=== PATIENT | female | born 1960 | race Caucasian/White ===

== ENCOUNTER 2020-08-24 13:04 | Outpatient (CLI) | payer OTHER, SELFPAY ==
--- NOTE | ~2020-08-24 | MR_ITS ---
EXAMINATION: MR thoracic spine wo con EXAM DATE: 08/24/2020 13:57 INDICATION: Back pain. TECHNIQUE: Multi-sequential, multiplanar MR images of the thoracic spine were obtained without contra st. Sagittal T1, T2, T2 fat saturation, axial T2 weighted images reviewed. There is no prior study for comparison. FINDINGS: Mild to moderate diffuse thoracic facet arthropathy, with mild ligamentum flavum hypertroph y at mid and lower thoracic levels. There are some small disc protrusions and bulges. No more than mi ld central canal stenosis at any given level. There is mild to moderate right-sided mid thoracic leve l neural foraminal stenosis. Paraspinal soft tissue is unremarkable. There is a 10 mm T1 and T2 low signal intensity region in the left side of the T4 vertebral body, ind eterminate. Differential diagnosis includes atypical hemangioma, metastatic disease, multiple myeloma . IMPRESSION: 1. Indeterminate T4 lesion, differential diagnosis including benign and malignant histologies. Consi robbi correlating with noncontrast thoracic CT or bone scan. 2. Mild to moderate thoracic spondylosis. 3. No acute findings. Reviewed, dictated and finalized at location A. IMPRESSION: 1. Indeterminate T4 lesion, differential diagnosis including benign and malign ant histologies. Consider correlating with noncontrast thoracic CT or bone scan . 2. Mild to moderate thoracic spondylosis. 3. No acute findings.
== END 2020-08-24 13:05 | disposition home or self-care (01) ==
PROVIDERS: PCP Internal Medicine; Visit Provider Nurse Practitioner Family
DX: M54.14 Radiculopathy, thoracic region (principal); M89.9 Disorder of bone, unspecified; M47.814 Spondylosis without myelopathy or radiculopathy, thoracic region
CPT/HCPCS: 72146

== ENCOUNTER 2020-09-15 09:27 | Outpatient (CLI) | payer OTHER, SELFPAY ==
--- NOTE | ~2020-09-15 | CT_ITS ---
EXAMINATION: CT thoracic spine wo con DATE: 09/15/2020 09:50 INDICATION: T4 mass. Back pain. TECHNIQUE: Computed tomography (CT) of the thoracic spine was performed without intravenous contrast. Automated exposure control and iterative reconstruction technique were employed. The dose-length pro duct was 608.38 mGy-cm. COMPARISON: Thoracic spine MRI 08/24/2020 FINDINGS: There is a small sliding hiatal hernia. Pneumobilia is noted, likely secondary to sphincter otomy. There is mild scarring at the lung apices. There is mild emphysema. There is 9 degrees levocur vature of upper thoracic spine. Vertebral body heights are normal. There is mildly decreased disc hei ght at multiple levels. There is moderately decreased disc height at T4-T5 and T5-T6 and severely dec reased disc height at T8-T9. There is endplate remodeling at many levels. There is multilevel facet j oint osteoarthritis, severe at many levels. On the right, there is mild neural foraminal stenosis at T4-T5 and T5-T6 and moderate neural foraminal stenosis at T8-T9 and T9-T10. On the left, there is mil d neural foraminal stenosis at T4-T5, T6-T7, and T8-T9. There is mild central canal stenosis at T10-T 11. IMPRESSION: 1. Moderate thoracic spondylosis. 2. No abnormality to correlate with the finding in T4 vertebral body on the prior MRI, likely benign. Reviewed, dictated and finalized at location A. IMPRESSION: 1. Moderate thoracic spondylosis. 2. No abnormality to correlate with the finding in T4 vertebral body on the teresa or MRI, likely benign.
== END 2020-09-15 09:28 | disposition home or self-care (01) ==
PROVIDERS: PCP Internal Medicine; Visit Provider Nurse Practitioner Family
DX: M47.814 Spondylosis without myelopathy or radiculopathy, thoracic region (principal)
CPT/HCPCS: 72128

== ENCOUNTER → 2020-10-14 11:30 | Outpatient (CLI) | payer OTHER, SELFPAY ==
--- NOTE | ~2020-10-14 | MM_ITS ---
EXAMINATION: MM screening [facility] BI w raul HISTORY: Screening mammogram TECHNIQUE: Craniocaudal and mediolateral oblique 3-D tomosynthesis images were obtained and synthetic 2-D images were generated. CAD analysis was submitted and interpreted. COMPARISON: 07/28/2012, 01/08/2012 BREAST PARENCHYMAL COMPOSITION: There are scattered areas of fibroglandular density. FINDINGS: Scattered benign-appearing calcifications are present. There is no evidence of suspicious m ass, calcification, or architectural distortion to suggest malignancy in either breast. There has bee n no suspicious interval change. IMPRESSION: 1. No mammographic evidence of malignancy. 2. Recommend routine screening mammography in one year. BI-RADS Category 2: Benign finding(s). Reviewed, dictated and finalized at location A.
== END ==
PROVIDERS: PCP Internal Medicine; Visit Provider Internal Medicine
DX: Z12.31 Encounter for screening mammogram for malignant neoplasm of breast (principal)
CPT/HCPCS: 77063; 77067

== ENCOUNTER 2021-10-01 03:44 | Emergency (ER) | payer OTHER, SELFPAY ==
--- NOTE | ~2021-10-01 | CT_ITS ---
EXAMINATION: CT abdomen pelvis wo con DATE: 10/01/2021 05:54 INDICATION: right upper abdominal pain. N/V, appetite changes TECHNIQUE: Computed tomography (CT) of the abdomen and pelvis was performed without intravenous contr ast. Automated exposure control and iterative reconstruction technique were employed. The dose-length product was 623.44 mGy-cm. COMPARISON: None FINDINGS: Lower thorax: Tree-in-bud opacities in the peripheral right middle lobe. Hiatal hernia Liver: Pneumobilia. Biliary/Gallbladder: Gallbladder is absent. No bile duct dilation. Pancreas: No mass or duct dilation. Spleen: Normal. Adrenals:No mass. Kidneys: No mass or stone. Mild right pelvic caliectasis without obstructing stone or mass, presumed chronic. GI tract: No small or large bowel dilation. Normal appendix. Mesentery/Peritoneum: No ascites, mass, or free air. Retroperitoneum: No mass. Pelvis: Pelvic organs are within normal limits. Soft Tissues: Soft tissues and body wall unremarkable. Bones: No acute osseous finding. IMPRESSION: Pneumobilia, most commonly seen following biliary instrumentation or secondary to an incompetent sphi ncter of Oddi, but may also occur with biliary-enteric fistula, and rarely from infection. Right midd le lobe tree-in-bud opacities as can be seen with atypical infection, airways disease, and aspiration . Reviewed, dictated and finalized at location K. IMPRESSION: Pneumobilia, most commonly seen following biliary instrumentation or secondary to an incompetent sphincter of Oddi, but may also occur with biliary-enteric fi stula, and rarely from infection. Right middle lobe tree-in-bud opacities as ca n be seen with atypical infection, airways disease, and aspiration.
[2021-10-01 03:48] VITALS: BP 104/62; PULSE 80; RESP 12; O2SAT 98
--- NOTE | 2021-10-01 03:58 | ECG_ITS ---
Measurements Intervals [place] Rate: 74 P: 66 SC: 137 QRS: 56 QRSD: 84 T: 40 QT: 367 QTc: 409 Interpretive Statements SINUS RHYTHM WITH SHORT SC INTERVAL NO PREVIOUS ECG AVAILABLE FOR COMPARISON Electronically Signed On 10-01-2021 8:59:25 CDT by Merle Tolbert M.D.
[2021-10-01 04:00] VITALS: BP 101/82; PULSE 80; RESP 17; TEMP 37; O2SAT 97
[2021-10-01] MEDS: ONDANSETRON INJ 4 MG/2 ML VIAL IV PUSH (04:18)
[2021-10-01] MEDS: KETOROLAC 30 MG/ML VIAL (*BKC) IV PUSH (04:19)
[2021-10-01] MEDS: SODIUM CHLORIDE 0.9% IV 1,000 ML 999 ML IV CONT (04:20)
[2021-10-01 04:54] LABS: Basophils Percent Auto 0.4 % (0.2-1.2); Eosinophils Percent Auto 0.1 % (0-4.4); Hematocrit 40.1 % (37.0-47.0); Hemoglobin 12.6 g/dL (12.0-15.0); Immature Granulocyte Absolute 0.04 K/mm3 (0.00-0.031); Immature Granulocyte Percent A 0.4 % (0-0.5); Lymphocytes Absolute Auto 0.41 K/mm3 (0.9-3.2); Lymphocytes Percent Auto 3.8 % (18.3-44.2); Mean Corpuscular HGB Conc 31.4 g/dl (32-36); Mean Corpuscular Hemoglobin 31.7 pg (26-34); Mean Corpuscular Volume 100.8 fl (80-100); Mean Platelet Volume 9.5 fl (7.4-10.4); Monocytes Absolute Auto 0.4 K/mm3 (0.1-0.6); Monocytes Percent Auto 3.6 % (2.6-8.5); Neutrophils Absolute Auto 9.9 K/mm3 (1.3-6.7); Neutrophils Percent Auto 91.7 % (45.5-73.1); Platelet Count Result 278 k/mm3 (150-375); Red Blood Count 3.98 M/mm3 (4.2-5.4); Red Cell Distribution Width 13.2 % (11.5-14.5); White Blood Count 10.8 K/mm3 (4.5-10.0)
[2021-10-01 05:10] LABS: Alanine Aminotransferase 453 U/L (6-35); Albumin Level 3.6 g/dL (3.5-5.1); Alkaline Phosphatase 197 U/L (38-126); Anion Gap 5 mmol/L (8-16); Bilirubin,Total 2.1 mg/dL (0.2-1.3); Blood Urea Nitrogen 15 mg/dL (7-17); Calcium 7.9 mg/dL (8.4-10.2); Carbon Dioxide 25 mmol/L (22-30); Chloride 105 mmol/L (98-107); Estimated CRCL calculation 71 ml/min; Estimated Glomerular Filt Rate > 60; Glucose 146 mg/dL (65-110); Lipase 90 U/L (23-300); Potassium 4.3 mmol/L (3.4-5.0); Sodium 135 mmol/L (137-145)
--- NOTE | 2021-10-01 05:10 | ED.ABDPAIN ---
HPI - Abdominal Pain General Chief Complaint: Abdominal Pain Stated Complaint: RUQ pain to chest and back Time Seen by Provider: 10/01/21 03:46 Source: patient Mode of arrival: ambulatory Limitations: no limitations History of Present Illness HPI narrative: This is a 61 year old female with history GI issues and pancreatitis who presents for evaluation of upper abdominal pain. She states yesterday evening she ate grill pork and potatoes. She developed epigastric abdominal pain that radiates to right upper abdomen 2 hours later. She also reports associated nausea and vomiting. Onset (ago): hour(s) (8) Pain Consistency: colicky Location: RUQ Radiation: back Related Data Allergies Allergy/AdvReac Type Severity Reaction Status Date / Time acetaminophen Allergy Mild Itching Unverified 10/01/21 04:03 hydrocodone Allergy Mild Itching Unverified 10/01/21 04:03 morphine Allergy Unknown Hives Unverified 10/01/21 04:03 Course Reevaluation(s) Reevaluation #1: PAtient states she feels better. I discussed labs show elevated LFTs. She reports that may be normal for her. 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 Guerrero. I reviewed her labs and CT showing pneumobilia. He states it does not appear that patient is obstructed. HE request hepatitis panel and he will see patient in office tomorrow at 2pm. I discussed this discharge plan with patient and she is agreeable. Patient reports she last drank alcohol 1 week ago. She denies taking any tylenol or new medications. Date: 10/01/21 Time: 07:14 Vital Signs Vital signs: Vital Signs Pulse Rate 80 10/01/21 03:48 Respiratory Rate 12 10/01/21 03:48 Blood Pressure 104/62 10/01/21 03:48 Pulse Oximetry 98 10/01/21 03:48 Oxygen Delivery Room Air 10/01/21 03:48 Temperature 98.6 F 10/01/21 04:00 Pulse Rate 75 10/01/21 06:49 Respiratory Rate 16 10/01/21 06:49 Blood Pressure 103/59 L 10/01/21 06:49 Pulse Oximetry 96 10/01/21 06:49 Oxygen Delivery Room Air 10/01/21 03:48 MDM - Abdominal Pain Differential Diagnosis Differential diagnosis: Likely abdominal pain, calculus of kidney, gastroenteritis, pancreatitis and small bowel obstruction Medical Records Attestation: I reviewed the patient's medical records. Lab Data Attestation: I reviewed the patient's lab results. Result diagrams: 10/01/21 04:49 10/01/21 04:49 Labs: Lab Results 10/01/21 10/01/21 10/01/21 Range/Units 04:49 04:49 05:38 WBC 10.8 H (4.5-10.0) K/mm3 RBC 3.98 L (4.2-5.4) M/mm3 Hgb 12.6 (12.0-15.0) g/dL Hct 40.1 (37.0-47.0) % MCV 100.8 H (80-100) fl MCH 31.7 (26-34) pg MCHC 31.4 L (32-36) g/dl RDW 13.2 (11.5-14.5) % Plt Count 278 (150-375) k/mm3 MPV 9.5 (7.4-10.4) fl Immature Gran % (Auto) 0.4 (0-0.5) % Neut % (Auto) 91.7 H (45.5-73.1) % Lymph % (Auto) 3.8 L (18.3-44.2) % [place]alloway % (Auto) 3.6 (2.6-8.5) % Eos % (Auto) 0.1 (0-4.4) % Baso % (Auto) 0.4 (0.2-1.2) % Lymph # (Auto) 0.41 L (0.9-3.2) K/mm3 [place]alloway # (Auto) 0.4 (0.1-0.6) K/mm3 Eos # (Auto) 0.0 (0-0.3) K/mm3 Baso # (Auto) 0.0 (0.0-0.1) K/mm3 Abs Immat Gran (auto) 0.04 H (0.00-0.031) K/mm3 Absolute Neuts (auto) 9.9 H (1.3-6.7) K/mm3 Absolute Nucleated RBC 0.0 (0.0-0.012) K/mm3 Nucleated RBC % 0.0 (0.0-0.2) % Sodium 135 L (137-145) mmol/L Potassium 4.3 (3.4-5.0) mmol/L Chloride 105 (98-107) mmol/L Carbon Dioxide 25 (22-30) mmol/L Anion Gap 5 L (8-16) mmol/L BUN 15 (7-17) mg/dL Creatinine 0.70 (0.7-1.0) mg/dL Estim Creat Clear Calc 71 ml/min Estimated GFR > 60 (59 - ) Glucose 146 H (65-110) mg/dL Calcium 7.9 L (8.4-10.2) mg/dL Total Bilirubin 2.1 H (0.2-1.3) mg/dL AST 830 H (14-36) U/L ALT 453 H (6-35) U/L Alkaline Phosphatase 197 H (38-126) U/L Troponin I < 0.012 (0.000-0.034) ng/mL Total Pro
[2021-10-01 05:18] LABS: Troponin I < 0.012 ng/mL (0.000-0.034)
[2021-10-01 05:32] LABS: Aspartate Amino Transferase 830 U/L (14-36)
[2021-10-01 06:02] LABS: Add Urine Microscopic? YES; Appearance Urine Clear (Clear); Bilirubin Urine 2+ (Negative); Blood Urine Negative (Negative); Color Urine Yellow (Yellow); Glucose Urine UA Negative (Negative); Ketones Urine Trace mg/dL (Negative); Leukocyte Esterase Ur Negative LEU/UL (Negative); Nitrate Urine Negative (Negative); Protein Urine Negative (Negative); Specific Grav Ur 1.015 (1.001-1.035); pH Urine 8.5 (5.0-9.0)
[2021-10-01 06:05] VITALS: BP 103/62; PULSE 81; RESP 16; O2SAT 96
[2021-10-01 06:11] LABS: Mucus Urine Rare /lpf; RBC Urine 0-2 /hpf (0-2); Squamous Epithelial Cell Urine Rare /hpf (Few); WBC Urine 0-3 /hpf
[2021-10-01 06:49] VITALS: BP 103/59; PULSE 75; RESP 16; O2SAT 96
[2021-10-01 08:25] VITALS: BP 95/57; PULSE 70; RESP 15; O2SAT 96
[2021-10-01 08:37] LABS: Hepatitis B Surface Antigen Negative (Negative)
[2021-10-01 08:43] LABS: HAV RESULT Negative (Negative); Hepatitis B Core IgM Result Negative (Negative)
[2021-10-01 08:54] LABS: Hepatitis C Virus Antibody Negative (Negative)
== END 2021-10-01 08:20 | disposition home or self-care (01) ==
PROVIDERS: Emergency Provider General Practice; PCP Internal Medicine
DX: R10.11 Right upper quadrant pain (principal); R74.01 Elevation of levels of liver transaminase levels; R93.5 Abnormal findings on diagnostic imaging of other abdominal regions, including retroperitoneum
CPT/HCPCS: 36415; 74176; 80053; 80074; 81001; 83690; 84484; 85025; 93005; 96361; 96374; 96375; 99284; J1885; J2405; J7030

== ENCOUNTER → 2021-10-25 11:13 | Outpatient (CLI) | payer OTHER, SELFPAY ==
--- NOTE | ~2021-10-25 | CT_ITS ---
EXAMINATION: CT thoracic spine wo con DATE: 10/25/2021 11:34 INDICATION: Indeterminate T4 lesion on 08/16/2020 MR thoracic spine examination TECHNIQUE: Computed tomography (CT) of the thoracic spine was performed without intravenous contrast. Automated exposure control and iterative reconstruction technique were employed. Exam dose: 501.67 mGy-cm total exam DLP. COMPARISON: 08/24/2020 MR thoracic spine 09/15/2020 CT thoracic spine FINDINGS: No suspicious osteolytic or osteoblastic lesion of the thoracic spine. No significant abnor mality is identified at T4. There is mild degenerative spurring of the thoracic spine. IMPRESSION: Mild degenerative spurring of the thoracic spine Reviewed, dictated and finalized at Location A. Reviewed, dictated and finalized at location A.
== END ==
PROVIDERS: PCP Internal Medicine; Visit Provider Nurse Practitioner Family
DX: R93.89 Abnormal findings on diagnostic imaging of other specified body structures (principal); M46.04 Spinal enthesopathy, thoracic region
CPT/HCPCS: 72128

== ENCOUNTER → 2023-02-07 14:04 | Outpatient (CLI) | payer BC, SELFPAY ==
--- NOTE | ~2023-02-07 | MR_ITS ---
EXAMINATION: MR thoracic spine wo con DATE: 02/07/2023 14:39 INDICATION: Thoracic back pain. TECHNIQUE: Magnetic resonance imaging (MRI) of the thoracic spine was performed without intravenous c ontrast. COMPARISON: Thoracic spine MRI 08/24/2020 FINDINGS: There is 6 degrees levocurvature of upper thoracic spine. There is a chronic compression fr acture of T12 with 2/5 loss of height centrally. There is mildly decreased disc height at T4-T5 and T 8-T9. There is multilevel facet joint osteoarthritis, severe at many levels. At T10-T11, there is a c entral extrusion with mild central canal stenosis. There is mild neural foraminal stenosis at multipl e levels bilaterally. On the right, there is moderate neural foraminal stenosis at T5-T6 and T8-T9. T he spinal cord signal intensity is normal. The conus medullaris is at L1. IMPRESSION: 1. Moderate thoracic spondylosis, stable from 08/24/20. Reviewed, dictated and finalized at location A.
== END ==
PROVIDERS: PCP Nurse Practitioner Family; Visit Provider Nurse Practitioner Family
DX: M54.6 Pain in thoracic spine (principal); M43.04 Spondylolysis, thoracic region
CPT/HCPCS: 72146

== ENCOUNTER 2024-02-03 09:09 | Outpatient (CLI) | payer MEDICARE, OTHER, SELFPAY ==
--- NOTE | ~2024-02-03 | MR_ITS ---
MRI of the lumbar spine Clinical History: Back pain Technique: Axial T2-weighted images, and sagittal T1-weighted, T2-weighted, and and T2 fat-sat images were acquired. Findings: There is no fracture or subluxation of the lumbar spine. Vertebral bodies maintain normal h eight and line. No bone marrow signal abnormality seen. There is no significant disc bulge or herniation at any lumbar level. There are moderate to advanced facet joint degenerative changes throughout the lumbar spine. No spinal canal stenosis or neural fora guanaco narrowing at any lumbar level. Paravertebral soft tissues are unremarkable. Impression: Mild degenerative spondylosis overall, with extensive facet arthropathy, as detailed above. Reviewed, dictated and finalized at location M. Impression: Mild degenerative spondylosis overall, with extensive facet arthropathy, as det johny above.
== END 2024-02-03 09:10 | disposition home or self-care (01) ==
PROVIDERS: PCP Internal Medicine; Visit Provider Nurse Practitioner Family
DX: M47.896 Other spondylosis, lumbar region (principal)
CPT/HCPCS: 72148